=== PATIENT | male | born 1985 | race Caucasian/White ===

== ENCOUNTER 2020-12-15 06:46 | Emergency (ER) | payer MEDICAID, SELFPAY ==
[~2020-12-15] VITALS: Ht 170.2 cm; Wt 122.5 kg
[2020-12-15 06:50] VITALS: BP_SYST 127
[2020-12-15] MEDS ORDERED: HYDROcodone/ACETAMIN 10-325 MG TAB PO ONE (07:45)
[2020-12-15] MEDS ORDERED: HYDROcodone/ACETAMIN 10-325 MG TAB ONE (07:50)
[2020-12-15] MEDS ORDERED: HYDR-3917 PO (09:28)
[2020-12-15] MEDS ORDERED: IBUP-1971 PO (09:28)
[2020-12-15 09:32] LABS: CKMB RELATIVE INDEX 2.7 (0.0-2.9); CREATINE KINASE MB 77.8 ng/mL (0-3.6)
[2020-12-15] MEDS ORDERED: NACL 0.9% 2,000 ML IV ONE (10:15)
[2020-12-15] MEDS ORDERED: MORPHINE 4 MG INJ. 4 MG/ML VIAL IVP ONE (10:15)
[2020-12-15 10:20] LABS: BASOPHILS % (AUTO) 0.1 % (0.0-2.0); EOSINOPHILS % (AUTO) 0.1 % (0.0-4.0); HEMATOCRIT 43.5 % (36-54); LYMPHOCYTES # (AUTO) 0.5 K/uL (1.0-5.5); LYMPHOCYTES % (AUTO) 3.8 % (20.5-51.5); MEAN CORPUSCULAR HEMOGLOBIN 31 pg (27-31); MEAN CORPUSCULAR HGB CONC 35 % (32-36); MEAN CORPUSCULAR VOLUME 90 fL (79.0-98.0); MONOCYTES # (AUTO) 0.8 K/uL (0.0-1.0); MONOCYTES % (AUTO) 5.7 % (1.7-9.3); NEUTROPHILS # (AUTO) 12.7 K/uL (1.8-7.7); NEUTROPHILS % (AUTO) 90.3 % (40.0-70.0); PLATELET COUNT (AUTO) 247 K/uL (130-430); RED BLOOD CELL COUNT(AUTO) 4.81 MIL/uL (4.2-6.2); RED CELL DISTRIBUTION WIDTH 12.5 % (9.0-15.0); WHITE BLOOD COUNT (AUTO) 14.1 K/uL (4.8-10.8)
[2020-12-15 10:30] LABS: CALCIUM 8.7 mg/dL (8.4-11.0); CREATININE 0.84 mg/dL (0.55-1.30)
[2020-12-15 10:36] LABS: ALBUMIN 3.8 g/dL (3.4-4.8); TOTAL BILIRUBIN 0.4 mg/dL (0.0-1.0)
[2020-12-15 10:39] LABS: INR 0.9 (0.80-1.20); PROTHROMBIN TIME 9.6 SECS (9.5-12.5)
[2020-12-15 13:13] VITALS: BP_SYST 111
== END 2020-12-15 13:12 ==
LOC: SED 06:46
DX: S20.219A Contusion of unspecified front wall of thorax, initial encounter (principal); S30.1XXA Contusion of abdominal wall, initial encounter; M62.82 Rhabdomyolysis; Z20.822 Contact with and (suspected) exposure to COVID-19; V49.59XA Passenger injured in collision with other motor vehicles in traffic accident, initial encounter; Y93.89 Activity, other specified; Y92.89 Other specified places as the place of occurrence of the external cause; Y99.8 Other external cause status
CPT/HCPCS: 36415; 71045; 72100; 74176; 76376; 80053; 82150; 82550; 82553; 83690; 84484; 85025; 85610; 85730; 87426; 93005; 96361; 96374; 99285; J2270; J7030

== ENCOUNTER 2022-04-25 20:29 | Emergency (ER) | payer MEDICAID ==
[~2022-04-25] VITALS: Ht 172.7 cm; Wt 104.3 kg
[~2022-04-25 20:29] MED LIST: HYDR-3917 PO; IBUP-1971 PO
[2022-04-25 20:51] VITALS: BP_SYST 143
--- NOTE | 2022-04-25 20:51 | NUR ---
Patient triaged and placed in waiting room. VSS and patient appears in no acute distress at this time. Accompanied by self, awaiting available bed, and MD notified of need for MSE.
--- NOTE | 2022-04-25 22:10 | NUR ---
MD WITH PATIENT IN TRIAGE FOR MSE.
[2022-04-25] MEDS ORDERED: NAPR-688 PO (22:16)
[2022-04-25] MEDS ORDERED: TRAM50TA2 PO (22:16)
[2022-04-25] MEDS ORDERED: ALBMDI INH (22:16)
[2022-04-25 22:27] VITALS: BP_SYST 143
--- NOTE | 2022-04-25 22:27 | NUR ---
Patient given written and verbal discharge instructions and verbalizes understanding. ER DR. GIRON discussed with patient the results and treatment provided. Patient in stable condition. ID arm band removed. Rx of ALBUTEROL, NAPROXEN, TRAMADOL given. Patient educated on pain management and to follow up with PMD. Pain Scale 0. Opportunity for questions provided and answered. Medication side effect fact sheet provided.
== END 2022-04-25 22:27 | disposition home or self-care (01) ==
LOC: SED 20:29
DX: J45.901 Unspecified asthma with (acute) exacerbation (principal); R06.02 Shortness of breath; Z79.899 Other long term (current) drug therapy
CPT/HCPCS: 99283

== ENCOUNTER 2022-06-25 08:48 | Emergency (ER) | payer MEDICAID ==
[~2022-06-25] VITALS: Ht 172.7 cm; Wt 113.4 kg
[~2022-06-25 08:48] MED LIST changes: +ALBMDI INH; +NAPR-688 PO; +TRAM50TA2 PO
[2022-06-25 08:52] VITALS: BP_SYST 115
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
[2022-06-25] MEDS ORDERED: DIPHTH,PERTUSS(ACELL),TET VAC 0.5 ML VIAL (Tdap) I.M. ONE (09:15)
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
[2022-06-25 09:28] LABS: BASOPHILS # (AUTO) 0.1 K/uL (0.0-0.2); BASOPHILS % (AUTO) 0.5 % (0.0-2.0); EOSINOPHILS # (AUTO) 0.3 K/uL (0.0-0.4); EOSINOPHILS % (AUTO) 3.5 % (0.0-4.0); HEMATOCRIT 46.3 % (36-54); HEMOGLOBIN 15.7 g/dL (14.0-18.0); LYMPHOCYTES # (AUTO) 1.5 K/uL (1.0-5.5); MEAN CORPUSCULAR HEMOGLOBIN 30 pg (27-31); MEAN CORPUSCULAR HGB CONC 34 % (32-36); MEAN CORPUSCULAR VOLUME 89 fL (79.0-98.0); MONOCYTES # (AUTO) 0.5 K/uL (0.0-1.0); MONOCYTES % (AUTO) 5.1 % (1.7-9.3); NEUTROPHILS # (AUTO) 7.2 K/uL (1.8-7.7); NEUTROPHILS % (AUTO) 74.9 % (40.0-70.0); PLATELET COUNT (AUTO) 269 K/uL (130-430); RED BLOOD CELL COUNT(AUTO) 5.23 MIL/uL (4.2-6.2); RED CELL DISTRIBUTION WIDTH 13.5 % (9.0-15.0); WHITE BLOOD COUNT (AUTO) 9.6 K/uL (4.8-10.8)
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
[2022-06-25] MEDS ORDERED: BACITRACIN 1 GM OINT TP ONE (09:31)
[2022-06-25 09:40] LABS: CALCIUM 8.6 mg/dL (8.4-11.0); CREATININE 0.98 mg/dL (0.55-1.30)
[2022-06-25 09:44] LABS: ALBUMIN 3.7 g/dL (3.4-4.8); C-REACTIVE PROTEIN QUANT 0.5 mg/dL (0-0.5); TOTAL BILIRUBIN 0.6 mg/dL (0.0-1.0)
[2022-06-25] MEDS ORDERED: IBUP-1971 PO (10:21)
[2022-06-25] MEDS ORDERED: CLIN-22 PO (10:21)
--- NOTE | 2022-06-25 10:34 | NUR ---
Patient given written and verbal discharge instructions and verbalizes understanding. ER MD discussed with patient the results and treatment provided. Patient in stable condition. ID arm band removed. Rx of CLINDAMYCIN, IBUPROFEN given. Patient educated on pain management and to follow up with PMD. Pain Scale 0/10. Opportunity for questions provided and answered. Medication side effect fact sheet provided.
[2022-06-25 10:35] VITALS: BP_SYST 112
[2022-06-25] MEDS ORDERED: INSULIN REGULAR, HUMAN 10 UNITS/0.1 ML, 3 ML VIAL IVP ONE (14:30)
== END 2022-06-25 10:34 | disposition home or self-care (01) ==
LOC: EDBD 08:48 → SED 08:48
DX: S90.851A Superficial foreign body, right foot, initial encounter (principal); J45.909 Unspecified asthma, uncomplicated; Z79.899 Other long term (current) drug therapy; W45.8XXA Other foreign body or object entering through skin, initial encounter; Y93.89 Activity, other specified; Y92.89 Other specified places as the place of occurrence of the external cause; Y99.8 Other external cause status
CPT/HCPCS: 36415; 80053; 83605; 85025; 86140; 90715; 99284

== ENCOUNTER 2022-06-30 16:53 | Emergency (ER) | payer MEDICAID ==
[~2022-06-30] VITALS: Ht 172.7 cm; Wt 108.9 kg
[~2022-06-30 16:53] MED LIST changes: +CLIN-22 PO
[2022-06-30 17:36] VITALS: BP_SYST 129
[2022-06-30] MEDS ORDERED: VANCOMYCIN HCL 1,000 MG in NS 250 ML IV ONE (18:30)
--- NOTE | 2022-06-30 18:45 | NUR ---
Patient to ER bed H1 to gown for evaluation. Side rails up.
--- NOTE | 2022-06-30 18:50 | NUR ---
ER at bedside examining patient.
--- NOTE | 2022-06-30 18:55 | NUR ---
PT PRESENTS TO ED C/O RLE CELLULITIS
--- NOTE | 2022-06-30 19:08 | NUR ---
# 20 gauge angiocath placed to RAC. Use of asceptic technique. Opsite placed over site. Blood return noted. Flushed with 10 cc of normal saline. No evidence of infiltration noted. Patient tolerated well.
[2022-06-30 19:16] LABS: CALCIUM 8.6 mg/dL (8.4-11.0); CREATININE 1.07 mg/dL (0.55-1.30)
[2022-06-30 19:20] LABS: BASOPHILS % (AUTO) 0.6 % (0.0-2.0); EOSINOPHILS # (AUTO) 0.4 K/uL (0.0-0.4); EOSINOPHILS % (AUTO) 4.6 % (0.0-4.0); HEMATOCRIT 40.5 % (36-54); LYMPHOCYTES % (AUTO) 24.5 % (20.5-51.5); MEAN CORPUSCULAR HEMOGLOBIN 30 pg (27-31); MEAN CORPUSCULAR HGB CONC 35 % (32-36); MEAN CORPUSCULAR VOLUME 88 fL (79.0-98.0); MONOCYTES # (AUTO) 0.7 K/uL (0.0-1.0); NEUTROPHILS # (AUTO) 4.9 K/uL (1.8-7.7); NEUTROPHILS % (AUTO) 61.3 % (40.0-70.0); PLATELET COUNT (AUTO) 272 K/uL (130-430); RED CELL DISTRIBUTION WIDTH 13.5 % (9.0-15.0)
[2022-06-30] MEDS ORDERED: VANCOMYCIN HCL 1000 MG/VIAL IV ONE (19:22)
[2022-06-30 19:32] LABS: ALBUMIN 3.5 g/dL (3.4-4.8); TOTAL BILIRUBIN 0.4 mg/dL (0.0-1.0)
--- NOTE | 2022-06-30 19:55 | NUR ---
RECEIVED REPORT FROM OUTGOING NURSE KRISTEN MARTINEZ. RECEIVED PT AWAKE AND ALERT, NO S/S OF DISCOMFORT NOTED. 20G RAC PATENT AND INTACT, NO S/S OF INFILTRATION NOTED. ANTIBIOTICS RUNNING AT 125ML/HR. VITALS TAKEN
--- NOTE | 2022-06-30 20:50 | NUR ---
LABS AT BEDSIDE
[2022-06-30] MEDS ORDERED: CEPH-548 PO (21:21)
[2022-06-30] MEDS ORDERED: SULF1TAB48 PO (21:21)
[2022-06-30 22:03] VITALS: BP_SYST 111
--- NOTE | 2022-06-30 22:04 | NUR ---
Patient given written and verbal discharge instructions and verbalizes understanding. ER DR DALE discussed with patient the results and treatment provided. Patient in stable condition. ID arm band removed. IV catheter removed intact and dressing applied, no active bleeding. Rx of CEPHALEXIN AND BACTRIM given. Patient educated on pain management and to follow up with PMD. Pain Scale 0/10. Opportunity for questions provided and answered. Medication side effect fact sheet provided.
--- NOTE | 2022-07-01 12:28 | NUR ---
[employer] re: homelessness Received social service referral for homelessness. Upon reviewing the patient's face sheet and demographic information, it was determined that the patient resides with his mother and sister. The patient was discharged home with no social service needs in place. This patient was not seen as the patient has already left the hospital. I spoke with CN KRISTEN Gunn in the ED to advise her that the patient is not homeless and in need of a code correction. She advised she would contact the nurse who completed the triage assessment for the code correction. A copy of the needed code correction was provided to her for her review as well as the CNO and director of the ED.
== END 2022-06-30 22:03 | disposition home or self-care (01) ==
LOC: SED 16:53
DX: L03.115 Cellulitis of right lower limb (principal); M79.671 Pain in right foot; J45.909 Unspecified asthma, uncomplicated; Z79.899 Other long term (current) drug therapy
CPT/HCPCS: 99285; 96365; 93971; 96366; 80053; 85025; 87040; 36415; 83605; J3370

== ENCOUNTER 2022-08-23 02:37 | Emergency (ER) | payer MEDICAID ==
[~2022-08-23] VITALS: Ht 170.2 cm; Wt 113.4 kg
[~2022-08-23 02:37] MED LIST changes: +CEPH-548 PO; +SULF1TAB48 PO
[2022-08-23 02:40] VITALS: BP_SYST 126
--- NOTE | 2022-08-23 02:48 | NUR ---
PATIENT PLACED IN BED 8 IN ED, MD AT BEDSIDE FOR ASSESSMENT
--- NOTE | 2022-08-23 02:50 | NUR ---
Dr. Slade bedside for pt eval
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
[2022-08-23] MEDS ORDERED: CEPH-548 PO (02:52)
[2022-08-23] MEDS ORDERED: NAPR-690 PO (02:52)
[2022-08-23] MEDS ORDERED: ACETAMINOPHEN 500 MG TABLET PO ONE (03:00)
[2022-08-23] MEDS ORDERED: IBUPROFEN 600 MG TABLET PO ONE (03:00)
[2022-08-23 03:06] VITALS: BP_SYST 129
--- NOTE | 2022-08-23 03:07 | NUR ---
Patient given written and verbal discharge instructions and verbalizes understanding. ER MD discussed with patient the results and treatment provided. Patient in stable condition. ID arm band removed. Rx of given. Patient educated on pain management and to follow up with PMD. Pain Scale 4/10. Opportunity for questions provided and answered. Medication side effect fact sheet provided.
== END 2022-08-23 03:06 | disposition home or self-care (01) ==
LOC: SED 02:37
DX: T24.231A Burn of second degree of right lower leg, initial encounter (principal); L03.115 Cellulitis of right lower limb; J45.909 Unspecified asthma, uncomplicated; Z79.899 Other long term (current) drug therapy; X08.8XXA Exposure to other specified smoke, fire and flames, initial encounter; Y93.89 Activity, other specified; Y92.89 Other specified places as the place of occurrence of the external cause; Y99.8 Other external cause status
CPT/HCPCS: 99283

== ENCOUNTER 2023-04-05 01:16 | Emergency (ER) | payer MEDICAID ==
[~2023-04-05] VITALS: Ht 172.7 cm; Wt 99.8 kg
[2023-04-05 01:16] VITALS: BP_SYST 140; PULSE 95; RESP 17; O2SAT 97
[~2023-04-05 01:16] MED LIST changes: +NAPR-690 PO
[2023-04-05] MEDS ORDERED: LIDOCAINE 1%, 20 ML MDV 20 ML ONE (01:24)
[2023-04-05] MEDS ORDERED: LIDOCAINE 1% 10 MG/ML, 50 ML MDV INJ ONE (01:30)
[2023-04-05] MEDS ORDERED: DIPHTH,PERTUSS(ACELL),TET VAC 0.5 ML VIAL (Tdap) I.M. ONE (01:45)
[2023-04-05] MEDS ORDERED: NAPR-1172 PO (01:47)
[2023-04-05] MEDS ORDERED: KETOROLAC TROMETHAMINE 60 MG/2 ML VIAL IM ONE (02:00)
[2023-04-05 02:01] VITALS: BP_SYST 140; PULSE 95; RESP 17; O2SAT 97
== END 2023-04-05 02:01 | disposition home or self-care (01) ==
LOC: SED 01:16
DX: S61.512A Laceration without foreign body of left wrist, initial encounter (principal); J45.909 Unspecified asthma, uncomplicated; Z79.899 Other long term (current) drug therapy; W26.8XXA Contact with other sharp object(s), not elsewhere classified, initial encounter; Y93.89 Activity, other specified; Y92.89 Other specified places as the place of occurrence of the external cause; Y99.8 Other external cause status
CPT/HCPCS: 99284; 90715; 96372; 90471; 12002; J1885; J2001

== ENCOUNTER 2023-04-15 04:03 | Emergency (ER) | payer MEDICAID ==
[~2023-04-15] VITALS: Ht 172.7 cm; Wt 99.8 kg
[~2023-04-15 04:03] MED LIST changes: +NAPR-1172 PO
[2023-04-15 04:35] VITALS: BP_SYST 131; PULSE 100; RESP 20; TEMP 97.1; O2SAT 97
[2023-04-15] MEDS ORDERED: CEPH-548 PO (05:17)
[2023-04-15] MEDS ORDERED: ALBMDI INH (05:17)
[2023-04-15 05:20] VITALS: BP_SYST 131; PULSE 100; RESP 20; TEMP 97.1; O2SAT 97
== END 2023-04-15 05:20 | disposition home or self-care (01) ==
LOC: SED 04:03
DX: Z48.02 Encounter for removal of sutures (principal); L03.114 Cellulitis of left upper limb; J45.909 Unspecified asthma, uncomplicated; Z79.899 Other long term (current) drug therapy
CPT/HCPCS: 99283

== ENCOUNTER 2023-05-22 13:24 | Emergency (ER) | payer MEDICAID ==
[~2023-05-22] VITALS: Ht 170.2 cm; Wt 113.4 kg
[2023-05-22 14:00] VITALS: BP_SYST 155; PULSE 74; RESP 20; TEMP 97; O2SAT 97
== END 2023-05-22 16:00 | disposition left against medical advice (07) ==
LOC: SED 13:24
DX: M25.532 Pain in left wrist (principal); J45.909 Unspecified asthma, uncomplicated; Z79.899 Other long term (current) drug therapy
CPT/HCPCS: 99281

== ENCOUNTER 2023-10-07 22:14 | Emergency (ER) | payer MEDICAID ==
[~2023-10-07] VITALS: Ht 172.7 cm; Wt 99.8 kg
[2023-10-07 22:24] VITALS: BP_SYST 128; PULSE 71; RESP 20; TEMP 97.9; O2SAT 97
[2023-10-07 23:22] VITALS: BP_SYST 128; PULSE 71; RESP 20; TEMP 97.9; O2SAT 97
== END 2023-10-07 23:21 | disposition home or self-care (01) ==
LOC: SED 22:14
DX: R07.89 Other chest pain (principal); F17.200 Nicotine dependence, unspecified, uncomplicated; J45.909 Unspecified asthma, uncomplicated; Z79.899 Other long term (current) drug therapy; Z79.2 Long term (current) use of antibiotics
CPT/HCPCS: 93005; 99283